=== PATIENT | male | born 1940 | race Caucasian/White ===

== ENCOUNTER 2016-12-23 08:22 | Emergency (ER) | payer OTHER, BC ==
[~2016-12-23] VITALS: Ht 180.3 cm; Wt 101.4 kg
[~2016-12-23 08:22] MED LIST: ATOR-22 PO; FLM4 PO; SULF800T23 PO
[2016-12-23 08:27] VITALS: TEMP 36.9; Ht 180.3 cm; Wt 101.4 kg
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
[2016-12-23] MEDS ORDERED: TAMS0.4C38 PO (08:58)
[2016-12-23] MEDS ORDERED: INSDGI SC (09:01)
[2016-12-23 09:08] LABS: URINE APPEARANCE CLOUDY (CLEAR); URINE BILIRUBIN NEG (NEG); URINE COLOR YELLOW; URINE EPITHELIAL CELL AUTO >30 /lpf (0-5); URINE NITRITE NEG (NEG); URINE PH 5.5 (4.5-7.5); URINE SPECIFIC GRAVITY 1.021 (1.000-1.030); UROBILINOGEN NEG (NEG); ZZUR CULT IF INDIC CLEAN CATCH NO
[2016-12-23 09:09] LABS: MANUAL MICROSCOPIC REQUIRED? NO; REVIEW REQ? YES
[2016-12-23 09:27] LABS: BASO % 0.7 %; BASO ABS # 0.04 K/uL (0-0.2); COMPLETE YES; EOS % 1.3 %; HEMATOCRIT 43.4 % (42-52); IG% 0.4 %; LYMPH % 20.1 %; MEAN CORPUSCULAR HGB CONC 35.5 g/dl (32-36); MEAN PLATELET VOLUME 10.6 fL (7.4-10.4); MONO % 8.6 %; NEUT % 68.9 %; PLATELET COUNT 164 K/uL (130-400); RED BLOOD COUNT 4.82 M/uL (4.7-6.1); WHITE BLOOD COUNT 5.48 K/uL (4.8-10.8)
[2016-12-23 09:44] LABS: BUN/CREATININE RATIO 13.3 (10-20); CALCIUM 11.1 mg/dl (8.5-10.1); CREATININE 1.5 mg/dl (0.60-1.40); POTASSIUM 4.1 mmol/L (3.5-5.1)
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
[2016-12-23 10:35] VITALS: BP 113/79; PULSE 76; O2SAT 97
== END 2016-12-23 10:35 | disposition home or self-care (01) ==
LOC: EDBD 08:22 → C.EDA 08:22
DX: S39.012A Strain of muscle, fascia and tendon of lower back, initial encounter (principal); V43.52XA Car driver injured in collision with other type car in traffic accident, initial encounter; E11.9 Type 2 diabetes mellitus without complications; E78.5 Hyperlipidemia, unspecified; Z79.4 Long term (current) use of insulin; Z79.899 Other long term (current) drug therapy; Z87.891 Personal history of nicotine dependence

== ENCOUNTER 2017-02-02 09:55 | Emergency (ER) | payer OTHER, BC ==
[~2017-02-02] VITALS: Ht 180.3 cm; Wt 97.9 kg
[~2017-02-02 09:55] MED LIST changes: -FLM4 PO; +INSDGI SC; -SULF800T23 PO; +TAMS0.4C38 PO
[2017-02-02 09:58] VITALS: TEMP 36.7; Ht 180.3 cm; Wt 97.9 kg
[2017-02-02] MEDS ORDERED: SODIUM CHLORIDE 0.9% 1000ML 1,000 ML IV STA (11:09)
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
[2017-02-02] MEDS ORDERED: LISIPOW PO (11:19)
[2017-02-02 11:33] LABS: BASO % 0.4 %; BASO ABS # 0.02 K/uL (0-0.2); COMPLETE YES; EOS % 1.7 %; HEMATOCRIT 44.9 % (42-52); IG% 0.2 %; LYMPH % 25.2 %; MEAN CELL VOLUME 90.5 fL (80-100); MEAN CORPUSCULAR HEMOGLOBIN 30.4 pg (25-34); MEAN CORPUSCULAR HGB CONC 33.6 g/dl (32-36); MEAN PLATELET VOLUME 10.6 fL (7.4-10.4); MONO % 8.4 %; NEUT % 64.1 %; PLATELET COUNT 161 K/uL (130-400); RED BLOOD COUNT 4.96 M/uL (4.7-6.1); WHITE BLOOD COUNT 4.76 K/uL (4.8-10.8)
[2017-02-02 11:37] LABS: URINE APPEARANCE CLOUDY (CLEAR); URINE BILIRUBIN NEG (NEG); URINE COLOR ORANGE; URINE EPITHELIAL CELL AUTO 20-30 /lpf (0-5); URINE NITRITE NEG (NEG); URINE PH 5.5 (4.5-7.5); URINE SPECIFIC GRAVITY 1.018 (1.000-1.030); UROBILINOGEN NEG (NEG); ZZUR CULT IF INDIC CLEAN CATCH NO
[2017-02-02 11:42] LABS: MANUAL MICROSCOPIC REQUIRED? NO; REVIEW REQ? NO
[2017-02-02 11:51] LABS: BUN/CREATININE RATIO 12.5 (10-20); CALCIUM 11.5 mg/dl (8.5-10.1); CREATININE 1.3 mg/dl (0.60-1.40); POTASSIUM 4.3 mmol/L (3.5-5.1)
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
[2017-02-02 14:00] VITALS: BP 126/74; PULSE 75; O2SAT 96
== END 2017-02-02 14:11 | disposition home or self-care (01) ==
LOC: C.EDB 09:56 → C.EDC 14:11
DX: R31.9 Hematuria, unspecified (principal); N21.0 Calculus in bladder; N32.3 Diverticulum of bladder; E11.9 Type 2 diabetes mellitus without complications; Z83.3 Family history of diabetes mellitus; Z82.49 Family history of ischemic heart disease and other diseases of the circulatory system